=== PATIENT | male | born 1995 | race Two or more races ===

== ENCOUNTER 2019-02-26 22:48 | Emergency (ER) | payer MEDICAID ==
[~2019-02-26] VITALS: Ht 175.3 cm; Wt 108.9 kg
[2019-02-27 01:45] VITALS: BP 110/72
[2019-02-27] MEDS ORDERED: IPRATROPIUM BROM 0.5 MG/2.5ML INH SOL NEB ONE ×2 (02:00→02:30)
[2019-02-27] MEDS ORDERED: ALBUTEROL SULF 2.5 MG/0.5ML(0.5%) NEB SOLN NEB ONE ×2 (02:00→02:30)
[2019-02-27] MEDS ORDERED: IPRATROPIUM BROM 0.5 MG/2.5ML INH SOL ONE ×2 (02:12)
[2019-02-27] MEDS ORDERED: ALBUTEROL SULF 2.5 MG/0.5ML(0.5%) NEB SOLN ONE (02:12)
== END 2019-02-27 02:41 | disposition home or self-care (01) ==
LOC: ER 22:52
DX: J40 Bronchitis, not specified as acute or chronic (principal)
CPT/HCPCS: 71045; 94640; 99283; J7611; J7644